=== PATIENT | female | born 1965 | race Caucasian/White ===

== ENCOUNTER 2022-04-29 11:41 | Outpatient (CLI) | payer BC | END 2022-04-29 11:42 | disposition home or self-care (01) | LOC: CSHMAMMO 11:41 | PROVIDERS: ATTEND Obstetrics & Gynecology | DX: Z12.31 Encounter for screening mammogram for malignant neoplasm of breast (principal); Z91.89 Other specified personal risk factors, not elsewhere classified | CPT/HCPCS: 77063; 77067 ==

== ENCOUNTER 2025-02-02 07:43 | Outpatient (CLI) | payer BC | END 2025-02-02 07:44 | disposition home or self-care (01) | LOC: CSHMAMMO 07:43 | PROVIDERS: ATTEND Nurse Practitioner Family | DX: N64.4 Mastodynia (principal); N63.15 Unspecified lump in the right breast, overlapping quadrants | CPT/HCPCS: G0279 ==